=== PATIENT | male | born 1990 | race African-American/Black ===

== ENCOUNTER 2019-10-12 10:23 | Emergency (ER) | payer MEDICAID ==
[~2019-10-12] VITALS: Ht 188 cm; Wt 89.0 kg
[2019-10-12 10:44] VITALS: BP 121/71
[2019-10-12] MEDS ORDERED: CEPHALEXIN 250MG CAPSULE PO ONE (11:15)
[2019-10-12] MEDS ORDERED: IBUPROFEN 800MG TABLET PO ONE (11:15)
== END 2019-10-12 11:47 | disposition home or self-care (01) ==
LOC: ER 10:23
DX: J02.9 Acute pharyngitis, unspecified (principal); R59.0 Localized enlarged lymph nodes; F17.210 Nicotine dependence, cigarettes, uncomplicated; F12.10 Cannabis abuse, uncomplicated; Z71.6 Tobacco abuse counseling
CPT/HCPCS: 87070; 87430; 99283; 99406

== ENCOUNTER 2022-04-24 21:20 | Emergency (ER) | payer MEDICAID ==
[~2022-04-24] VITALS: Ht 188 cm; Wt 104.0 kg
[2022-04-24 22:26] VITALS: BP 167/114
[2022-04-24] MEDS ORDERED: LEVETIRACETAM 1000MG PREMIX 100 ML IV ONE (22:30)
[2022-04-24] MEDS ORDERED: DIAZEPAM 5 MG/ML 2ML CPJ IV ONE (22:45)
[2022-04-24 23:01] LABS: BASOPHILS % 0.4 % (0.0-2.0); HEMATOCRIT. 48.1 % (42.0-52.0); HEMOGLOBIN. 16.2 g/dL (14.0-18.0); LYMPHOCYTES % 18.5 % (20.0-50.0); MEAN CORPUSCULAR VOLUME 89.1 fL (80.0-94.0); MEAN PLATELET VOLUME 7.4 fl (7.4-10.4); MONOCYTES % 10.5 % (2.0-8.0); NEUTROPHILS % 67.6 % (40.0-76.0); PLATELET 271 x1000/uL (130-400); RED BLOOD CELL COUNT 5.39 mill/uL (4.7-6.1); RED CELL DISTRIBUTION WIDTH 16.6 % (11.6-14.6)
[2022-04-24 23:05] LABS: CHLORIDE 105 mEq/L (98-107)
[2022-04-24 23:09] LABS: ETHANOL BLOOD < 10 mg/dL
[2022-04-25] MEDS ORDERED: L25 MT (01:40)
== END 2022-04-25 02:18 | disposition home or self-care (01) ==
LOC: ER 21:20
DX: S00.81XA Abrasion of other part of head, initial encounter (principal); F10.139 Alcohol abuse with withdrawal, unspecified; R56.9 Unspecified convulsions; Y90.9 Presence of alcohol in blood, level not specified; W01.0XXA Fall on same level from slipping, tripping and stumbling without subsequent striking against object, initial encounter; Y93.89 Activity, other specified; Y92.018 Other place in single-family (private) house as the place of occurrence of the external cause
CPT/HCPCS: 36415; 70450; 80053; 80320; 85025; 96365; 96375; 99284; J1953; J3360; G0480

== ENCOUNTER 2022-07-24 15:10 | Emergency (ER) | payer MEDICAID ==
[~2022-07-24] VITALS: Ht 185.4 cm; Wt 100.0 kg
[~2022-07-24 15:10] MED LIST: L25 MT
[2022-07-24] MEDS ORDERED: KETOROLAC 30MG/ML VIAL IV ONE (16:15)
[2022-07-24 16:38] LABS: BASOPHILS % 0.2 % (0.0-2.0); EOSINOPHILS % 0.4 % (0.0-5.0); HEMATOCRIT. 49.6 % (42.0-52.0); HEMOGLOBIN. 16.6 g/dL (14.0-18.0); LYMPHOCYTES % 37.3 % (20.0-50.0); MEAN CORPUSCULAR HEMOGLOBIN 30.3 pg (28.0-32.0); MEAN CORPUSCULAR VOLUME 90.4 fL (80.0-94.0); MEAN PLATELET VOLUME 8.1 fl (7.4-10.4); MONOCYTES % 9.1 % (2.0-8.0); PLATELET 187 x1000/uL (130-400); RED BLOOD CELL COUNT 5.49 mill/uL (4.7-6.1); RED CELL DISTRIBUTION WIDTH 16.4 % (11.6-14.6)
[2022-07-24 16:39] LABS: CHLORIDE 103 mEq/L (98-107)
[2022-07-24 16:49] LABS: ETHANOL BLOOD < 10 mg/dL
[2022-07-24 16:51] LABS: CLARITY URINE CLEAR (CLEAR); COLOR URINE YELLOW (YELLOW); KETONES URINE 1+ (NEGATIVE); LEUKOCYTE ESTERASE URINE NEGATIVE (NEGATIVE); NITRITE URINE NEGATIVE (NEGATIVE); OCCULT BLOOD URINE 3+ (NEGATIVE); PH URINE 5.5 (4.5-8.0); PROTEIN URINE 3+ (NEGATIVE); SPECIFIC GRAVITY URINE 1.027 (1.005-1.030)
[2022-07-24 17:11] LABS: *AMPHETAMINES SCREEN URINE NEGATIVE (NEGATIVE); *BARBITURATES SCREEN URINE NEGATIVE (NEGATIVE); *BENZODIAZEPINES SCREEN URINE NEGATIVE (NEGATIVE); *COCAINE SCREEN URINE NEGATIVE (NEGATIVE); CANNABINOID URINE SCREEN NEGATIVE (NEGATIVE); METHADONE URINE SCREEN NEGATIVE (NEGATIVE); OPIATES URINE SCREEN NEGATIVE (NEGATIVE); PHENCYCLIDINE URINE SCREEN NEGATIVE (NEGATIVE)
[2022-07-24] MEDS ORDERED: POTASSIUM CHLORIDE 20MEQ/PACKET PO NR (17:30)
[2022-07-24 18:30] VITALS: BP 162/102
== END 2022-07-24 19:14 | disposition home or self-care (01) ==
LOC: ER 15:10
DX: R55 Syncope and collapse (principal)
CPT/HCPCS: 36415; 70450; 80053; 80305; 80320; 81003; 85025; 96374; 99284; J1885; G0480